=== PATIENT | female | born 1960 | race Two or more races ===

== ENCOUNTER 2021-07-24 16:10 | Emergency (ER) | payer OTHER ==
[~2021-07-24] VITALS: Ht 167.6 cm; Wt 72.6 kg
[2021-07-24] MEDS ORDERED: IBUPROFEN 600 MG TAB PO ONE (17:00)
[2021-07-24 20:55] VITALS: BP 129/85
== END 2021-07-24 21:00 | disposition home or self-care (01) ==
LOC: EDSEX 16:10 → ER 16:10 → EDBD 16:10 → ER 21:00
DX: M25.532 Pain in left wrist (principal); R51.9 Headache, unspecified; M79.10 Myalgia, unspecified site; M25.551 Pain in right hip; Z88.0 Allergy status to penicillin; Z90.49 Acquired absence of other specified parts of digestive tract; Z90.89 Acquired absence of other organs; V03.10XA Pedestrian on foot injured in collision with car, pick-up truck or van in traffic accident, initial encounter; Y93.89 Activity, other specified; Y92.59 Other trade areas as the place of occurrence of the external cause; Y99.8 Other external cause status
CPT/HCPCS: 70450; 71045; 72125; 72170; 73110